=== PATIENT | female | born 1985 | race Caucasian/White ===

== ENCOUNTER 2018-10-21 01:39 | Inpatient (IN) | payer OTHER ==
[~2018-10-21 01:39] MED LIST: Buffered Lidocaine 1% SYRIN* 1 ML/SYRINGE INTRADERM ONE
[2018-10-21] MEDS ORDERED: Sodium Citrate/Citric Acid* 15 ML UDC PO ONE (06:00)
[2018-10-21] MEDS ORDERED: Lactated Ringers 1000 ML Bag* 1,000 ML IV SCH ×3 (06:00→10:00)
[2018-10-21] MEDS ORDERED: Buffered Lidocaine 1% SYRIN* 1 ML/SYRINGE INTRADERM ONE (07:06)
[2018-10-21] MEDS ORDERED: Lactated Ringers 1000 ML Bag* 1,000 ML IV ONE (07:06)
[2018-10-21] MEDS ORDERED: Gentamicin ADULT (*) 40 MG/ML VIAL (2 ML VIAL = 80 MG) IVPB ONE (07:09)
[2018-10-21] MEDS ORDERED: Clindamycin 900 MG/D5W BAG(*) 900 MG/50 ML BAG IVPB ONE (07:11)
[2018-10-21] MEDS ORDERED: Morphine PF AMP (0.5MG/ML)* 5 MG/10 ML AMP ONE (07:16)
[2018-10-21] MEDS ORDERED: Phenylephrine IV* 40 MCG/ML 10 ML SYRINGE ONE (07:18)
[2018-10-21] MEDS ORDERED: Lidocaine 2% PF * 5 ML VIAL ONE ×2 (07:18→09:37)
[2018-10-21] MEDS ORDERED: Bupivacaine-MPF SPINAL* 7.5 MG/ML - 2ML AMP ONE (07:18)
[2018-10-21] MEDS ORDERED: Gentamicin IVPREMIX 80 MG/80 ML BAG IV ONE (07:30)
[2018-10-21] MEDS ORDERED: EPHEDrine (Pressors)* 50 MG/ML VIAL ONE (07:43)
[2018-10-21] MEDS ORDERED: Acetaminophen TAB* 325 MG PO PRN (09:01)
[2018-10-21] MEDS ORDERED: Nalbuphine* 10 MG/ML 1 ML VIAL IV PRN (09:01)
[2018-10-21] MEDS ORDERED: Morphine VIAL* 4 MG/ML VIAL (1 ml vial) IV PRN (09:01)
[2018-10-21] MEDS ORDERED: HYDROcodone/ACETAMIN 5-325 MG* 1 TAB PO PRN (09:01)
[2018-10-21] MEDS ORDERED: DiMENhydriNATE IV* 50 MG/ML VIAL IV PUSH PRN (09:01)
[2018-10-21] MEDS ORDERED: fentaNYL* 50 MCG/ML 2 ML VIAL (100 MCG VIAL) IV PRN (09:01)
[2018-10-21] MEDS ORDERED: diPHENhydraMINE IV* 50 MG/ML 1 ml VIAL (BENADRYL) IV PRN (09:01)
[2018-10-21] MEDS ORDERED: Ibuprofen TAB* 600 MG PO PRN (09:01)
[2018-10-21] MEDS ORDERED: Naloxone* 0.4 MG/ML 1 ML VIAL IV PRN ×2 (09:01)
[2018-10-21] MEDS ORDERED: Ondansetron INJ* 2 MG/ML VIAL IV PRN (09:01)
[2018-10-21] MEDS ORDERED: Midazolam* 1 MG/ML 2 ML VIAL (2 MG) ONE (09:16)
[2018-10-21] MEDS ORDERED: fentaNYL* 50 MCG/ML 2 ML VIAL (100 MCG VIAL) ONE (09:35)
[2018-10-21] MEDS ORDERED: Ketorolac INJ* 30 MG/ML 1 ML VIAL IV PUSH ONE (09:39)
[2018-10-21] MEDS ORDERED: Witch Hazel PAD* JAR TOPICAL PRN (09:42)
[2018-10-21] MEDS ORDERED: Zolpidem TAB* 5 MG PO PRN (09:42)
[2018-10-21] MEDS ORDERED: Glycerin ADULT SUPP PR PRN (09:42)
[2018-10-21] MEDS ORDERED: Dibucaine 1% 28.35 GM TUBE PR PRN (09:42)
[2018-10-21] MEDS ORDERED: Ketorolac INJ* 30 MG/ML 1 ML VIAL ONE (10:07)
[2018-10-21] MEDS: Simethicone TAB* 80 MG TAB.CHEW PO SCH ×2 (16:29→23:05)
[2018-10-21] MEDS: Ibuprofen TAB* 600 MG PO PRN ×2 (16:29→23:05)
[2018-10-21] MEDS: Docusate CAP* 100 MG PO SCH ×2 (16:29→23:04)
[2018-10-21] MEDS ORDERED: oxyCODONE/Acetamin 5/325 MG* TAB PO PRN ×2 (16:40)
[2018-10-21] MEDS ORDERED: Ondansetron ODT TAB* 4 MG PO PRN (16:40)
[2018-10-21] MEDS: oxyCODONE/Acetamin 5/325 MG* TAB PO PRN ×2 (19:01→23:04)
--- NOTE | 2018-10-21 20:30 | OP ---
DATE OF OPERATION: 10/21/18 - ROOM #116 DATE OF : 83 SURGEON: Blue Griffin MD [employer] PROFESSOR: Senia Zuleta CNM ANESTHESIA: Spinal. PRE-OP DIAGNOSIS: Prior section, at 39 weeks, desires permanent surgical sterilization. POST-OP DIAGNOSIS: Prior section, at 39 weeks, desires permanent surgical sterilization. OPERATIVE PROCEDURE: Repeat low-transverse section and bilateral tubal fimbriectomy for tubal ligation. ESTIMATED BLOOD LOSS: 600 cc. SPECIMEN SENT TO PATHOLOGY: Bilateral tubal fimbria. FLUIDS: She received 2100 cc of IV crystalloid fluid. URINE OUTPUT: 300 cc of clear urine. FINDINGS: Delivery of a male infant over clear fluid with a weight of 8 pounds and 14 ounces with Apgars of 9 and 9. The placenta was grossly intact. The uterus, adnexa, bowel and bladder were all within normal limits and there were no complications. DESCRIPTION OF PROCEDURE: The patient was taken to the operating room where she was identified. She was placed on the operating table where a spinal anesthetic was obtained without difficulty. She was then placed in the supine position with a leftward tilt, prepped and draped in a normal sterile fashion. A Pfannenstiel skin incision was then made with a knife and carried through to the underlying layer of fascia. The fascia was nicked in the midline and extended laterally with curved Ladd scissors. The fascia was then grasped superiorly and inferiorly with Dorcas clamps and dissected off sharply from the rectus muscle. The rectus muscle was in the midline bluntly. The peritoneum was identified, grasped with pickups, entered sharply with Metzenbaum scissors and extended superiorly and inferiorly sharply. A bladder blade was inserted into the patient's abdomen. A bladder flap was created using Metzenbaum scissors over which the bladder blade was then reinserted. A low transverse uterine incision was made with a knife, extended laterally with bandage scissors. The amniotic sac was ruptured. The fluid was noted to be clear. The infant's head was then grasped and delivered atraumatically. The rest of the 's body was then delivered. The cord was clamped and cut. The was handed off to the awaiting professor of engineering. Cord bloods were obtained. The placenta was removed and sent to pathology. The uterus was then exteriorized, cleared of all clot and debris using moist laparotomy sponges. The uterine incision was then closed using 0 Polysorb suture in a running locked fashion with a second imbricating layer of 0 Polysorb suture with good hemostasis. The gutters were cleared of all clot and debris using moist laparotomy sponges and irrigation fluid. All the fluid from irrigation was suctioned. The sponges were removed from the patient's abdomen. The uterus was then returned to the patient's abdomen. The peritoneum was then closed using 3-0 Polysorb suture in a running fashion. The fascia was closed using 0 Polysorb suture in a running fashion and the skin was closed with a 4-0 Monocryl subcuticular stitch. The patient tolerated the procedure well. Sponge, lap, needle counts were correct x2. She was then transferred to recovery room area in stable condition. [id number]/[facility] #: [id number] MTDD
[2018-10-22] MEDS: oxyCODONE/Acetamin 5/325 MG* TAB PO PRN ×5 (04:47→20:04)
[2018-10-22] MEDS: Ibuprofen TAB* 600 MG PO PRN ×3 (06:41→20:10)
[2018-10-22 08:04] LABS: ABS Basophils 0 10^3/ul (0-0.2); ABS Eosinophils 0 10^3/ul (0-0.6); ABS Lymphocytes 1.6 10^3/ul (1.0-4.8); ABS Monocytes 0.5 10^3/ul (0-0.8); ABS Neutrophils 7.4 10^3/ul (1.5-7.7); ABS Nucleated RBC 0 10^3/ul; Eosinophil % 0.3 %; Hematocrit 31 % (35-47); Hemoglobin 10.3 g/dl (12.0-16.0); Mean Corpuscular HGB Conc 34 g/dl (31-36); Mean Corpuscular Hemoglobin 28 pg (27-31); Mean Corpuscular Volume 84 fL (80-97); Mean Platelet Volume 8.1 fL (7.4-10.4); Nucleated Red Blood Cells % 0; Platelet Count 152 10^3/ul (150-450); Red Blood Count 3.68 10^6/ul (4.00-5.40); Red Cell Distribution Width 16 % (10.5-15); White Blood Count 9.5 10^3/ul (3.5-10.8)
[2018-10-22] MEDS: Docusate CAP* 100 MG PO SCH ×3 (08:55→20:04)
[2018-10-22] MEDS: Simethicone TAB* 80 MG TAB.CHEW PO SCH ×5 (08:55→20:06)
[2018-10-22] MEDS ORDERED: Ferrous Gluconate TAB* 324 MG TAB PO SCH (09:00)
[2018-10-22] MEDS ORDERED: Zolpidem TAB* 5 MG PO PRN (21:00)
[2018-10-23] MEDS: oxyCODONE/Acetamin 5/325 MG* TAB PO PRN ×6 (00:10→20:46)
[2018-10-23] MEDS: Ibuprofen TAB* 600 MG PO PRN ×4 (02:07→19:43)
[2018-10-23] MEDS: Docusate CAP* 100 MG PO SCH ×3 (08:00→19:43)
[2018-10-23] MEDS: Simethicone TAB* 80 MG TAB.CHEW PO SCH ×4 (08:00→20:54)
[2018-10-24] MEDS: oxyCODONE/Acetamin 5/325 MG* TAB PO PRN ×3 (00:46→09:42)
[2018-10-24] MEDS: Ibuprofen TAB* 600 MG PO PRN ×2 (01:51→08:13)
[2018-10-24] MEDS: Simethicone TAB* 80 MG TAB.CHEW PO SCH (08:14)
[2018-10-24] MEDS: Docusate CAP* 100 MG PO SCH (08:14)
[2018-10-24 08:42] VITALS: BP 117/74
[2018-10-24] MEDS ORDERED: RHO D Immune Globulin (HUMAN)* 300 MCG = 1,500 I.U. INJ IM ONE (10:16)
== END 2018-10-24 13:08 | disposition home or self-care (01) | DRG 540 ==
LOC: MCHOB 06:05
PROVIDERS: ADMIT Obstetrics & Gynecology; ATTEND Obstetrics & Gynecology
PROC: 4A1HXCZ Monitoring of Products of Conception, Cardiac Rate, External Approach (ICD-10-PCS; 2018-10-21)
PROC: 0UB70ZZ Excision of Bilateral Fallopian Tubes, Open Approach (ICD-10-PCS; 2018-10-21)
PROC: 10D00Z1 Extraction of Products of Conception, Low, Open Approach (ICD-10-PCS; principal; 2018-10-21 07:45)
DX: O34.211 Maternal care for low transverse scar from previous cesarean delivery (principal); Z3A.39 39 weeks gestation of pregnancy; Z37.0 Single live birth; Z30.2 Encounter for sterilization; Z67.11 Type A blood, Rh negative; Z98.82 Breast implant status
CPT/HCPCS: 36415; 85025; 85461; 86900; 86901; 88302; A9270-GY; J1580; J1885; J2250; J2790; J3010